=== PATIENT | male | born 1995 | race Caucasian/White ===

== ENCOUNTER 2023-12-09 19:36 | Emergency (ER) | payer OTHER ==
[~2023-12-09] VITALS: Ht 167.6 cm; Wt 75.0 kg
[2023-12-09 19:41] VITALS: TEMP 98.2
[2023-12-09] MEDS ORDERED: DOXYCYCLINE 10100 MG PO (21:21)
[2023-12-09 21:30] VITALS: BP 133/88; PULSE 58
== END 2023-12-09 21:30 | disposition home or self-care (01) ==
LOC: COL.ER 19:36
DX: S80.862A Insect bite (nonvenomous), left lower leg, initial encounter (principal); S80.262A Insect bite (nonvenomous), left knee, initial encounter; W57.XXXA Bitten or stung by nonvenomous insect and other nonvenomous arthropods, initial encounter; Y93.01 Activity, walking, marching and hiking; Y92.828 Other wilderness area as the place of occurrence of the external cause